=== PATIENT | female | born 1975 | race Caucasian/White ===

== ENCOUNTER 2019-01-06 11:39 | Emergency (ER) | payer OTHER ==
[~2019-01-06] VITALS: Ht 167.6 cm; Wt 88.6 kg
[~2019-01-06 11:39] MED LIST: GUAIFENESIN; MULTIVITAMIN FO1 CAP PO; NO HOME MEDICATIONS; PRENATAL VITAMI1 TA5 PO; STOOL SOFTENER100 M1 PO; STOOL SOFTENER100 MG PO; ZOLOFT50 MG PO; [UNRECOGNIZED DRUG - SUPPLY]
[2019-01-06 11:40] VITALS: TEMP 98.3
[2019-01-06 12:26] LABS: BASO % 0.3 % (0.0-2.0); EOS # 0.2 (0.0-0.7); EOS % 2.5 % (0-4.0); GRAN # 3.1 (1.4-6.5); GRAN % 51.9 % (42.2-75.2); HEMATOCRIT 42.2 % (37.0-47.0); HEMOGLOBIN 14.5 g/dl (12.5-16.0); LYMPH # 2.1 (1.2-3.4); LYMPH % 35.7 % (20.0-51.0); MEAN CELL VOLUME 93 fl (80.0-100.0); MEAN CORPUSCULAR HEMOGLOBIN 32 pg (27.0-31.0); MEAN CORPUSCULAR HGB CONC 34 g/dl (33.0-37.0); MEAN PLATELET VOLUME 9.3 fl (7.4-10.4); MONO # 0.6 (0.1-0.6); MONO % 9.4 % (1.7-9.3); PLATELET COUNT 244 K/mm3 (130-400); RED BLOOD COUNT 4.55 M/mm3 (4.10-5.30)
[2019-01-06 12:37] LABS: ALBUMIN 4.4 gm/dL (3.5-5.0); BILIRUBIN,TOTAL 0.3 mg/dL (0.0-1.0); CALCIUM 8.9 mg/dL (8.4-10.2); CREATININE, serum 0.63 (0.52-1.25); POTASSIUM 3.5 mmol/L (3.4-5.0); TOTAL PROTEIN 7.5 gm/dL (6.4-8.2)
[2019-01-06 12:42] LABS: INR 0.9 (0.8-3.0); PROTHROMBIN TIME 10.6 SECONDS (9.7-12.8)
[2019-01-06] MEDS ORDERED: PLAVIX 75MG TAB75 MG PO (14:21)
[2019-01-06] MEDS ORDERED: ASPIRIN E.C. 8181 MG PO (14:21)
[2019-01-06 15:23] VITALS: BP 129/64; PULSE 73
== END 2019-01-06 15:25 | disposition short-term general hospital (02) ==
LOC: COL.ER 11:39
PROVIDERS: Emergency Medicine
DX: R56.9 Unspecified convulsions (principal); Z79.82 Long term (current) use of aspirin; Z79.02 Long term (current) use of antithrombotics/antiplatelets; Z86.73 Personal history of transient ischemic attack (TIA), and cerebral infarction without residual deficits
CPT/HCPCS: J1953; J2060; Q9967

== ENCOUNTER → 2019-09-01 | Outpatient (CLI) | payer OTHER ==
[~2019-09-01] MED LIST changes: +ASPIRIN E.C. 8181 MG PO; +PLAVIX 75MG TAB75 MG PO
== END ==
LOC: MC.RAD 14:09
DX: N63.20 Unspecified lump in the left breast, unspecified quadrant (principal)
CPT/HCPCS: G0279

== ENCOUNTER → 2019-09-07 | Outpatient (CLI) | payer OTHER | LOC: MC.RAD 07:51 | DX: N63.25 Unspecified lump in the left breast, overlapping quadrants (principal); R59.0 Localized enlarged lymph nodes | CPT/HCPCS: A4648 ==